=== PATIENT | male | born 1990 | race Caucasian/White ===

== ENCOUNTER 2017-01-30 09:43 | Emergency (ER) | payer MEDICAID, OTHER ==
[~2017-01-30] VITALS: Ht 167.6 cm; Wt 50.0 kg
[~2017-01-30 09:43] MED LIST: POLY3.5O OD; Z.0.NO CURRENT MEDS
[2017-01-30 10:00] VITALS: BP 117/70; PULSE 90; RESP 16; TEMP 97.8; O2SAT 95
--- NOTE | 2017-01-30 10:43 | PD ---
HPI Chief Complaint: Cold / Flu Symptoms Time Seen by Provider: 10:41 Travel History International Travel<30 days: No Contact w/Intl Traveler<30days: No Traveled to known affect area: No History of Present Illness HPI 26-year-old male presents to the emergency department complaining of cough and congestion for 2 weeks that has worsened since last Thursday. States that he went to a music festival recently in [place] where he likely picked up this infection. She also has some sinus tenderness and clear rhinorrhea. States he has moderate, sharp pain with coughing and deep breaths. He is coughing up clear and green sputum. Patient has also had subjective fever. He does have history of childhood asthma. Is not taking any medication to relieve symptoms. Patient states that he had a history of mycoplasma pneumonia at an unknown time. Patient denies shortness of breath, abdominal pain, urinary problems. Patient denies recent travel, surgeries, fractures, or other medical history. She works as a clerical adjudicator [employer] Past Medical History ADHD: Yes Asthma: Yes (HX OF; STATES "I GREW OUT OF IT. I HAVEN'T TAKEN ALBUTEROL IN 1 1/2 YRS") Autoimmune Disease: No Anxiety: No Depression: No Cancer: No Cardiovascular Problems: No Cystic Fibrosis: No Diabetes: No Diminished Hearing: No Gastrointestinal Disorders: Yes (HAD FECAL IMPACTION OF SUNFLOWER SEEDS) Genitourinary: No Musculoskeletal: No Neurologic: No Psychiatric: No Reproductive: No Respiratory: Yes (childhood asthma) Integumentary: Yes (SUPERFICIAL LACERATIONS ON RIGHT FOREARM--HEALING (SELF- INFLICTED W/GLASS)) Migraines: No Seizures: No Sleep Apnea: No Thyroid Disease: No Ulcer: No Past Surgical History Appendectomy: No Cholecystectomy: No Pacemaker: No Social History Alcohol Use: No Tobacco Use: Yes (1/2 PPD) Substance Use: No Allergies-Medications (Allergen,Severity, Reaction): Coded Allergies: azithromycin (Unverified Allergy, Severe, VOMITS, 01/30/17) Reported Meds & Prescriptions Reported Meds & Active Scripts Active Ventolin Hfa 18 GM Inh (Albuterol Sulfate) 90 Mcg/Act Aer 2 Puff INH Q4-6H PRN Doxycycline Hyclate 100 Mg Cap 100 Mg PO BID Review of Systems Except as stated in HPI: all other systems reviewed are Neg Physical Exam Narrative GENERAL: Well developed well nourished distress SKIN: Focused skin assessment warm/dry. HEAD: Atraumatic. Normocephalic. EYES: Pupils equal and round. No scleral icterus. No injection or drainage. ENT: No nasal bleeding or discharge. Mucous membranes pink and moist. Pharynx mildly irritated appearing NECK: Trachea midline. No JVD. No lymphadenopathy CARDIOVASCULAR: Regular rate and rhythm. No murmur appreciated. RESPIRATORY: No accessory muscle use. Breath sounds equal bilaterally- bilateral rhonchi GASTROINTESTINAL: Abdomen soft, non-tender, nondistended. Hepatic and splenic margins not palpable. No CVA tenderness MUSCULOSKELETAL: No obvious deformities. No clubbing. No cyanosis. No edema. NEUROLOGICAL: Awake and alert. No obvious cranial nerve deficits. Motor grossly within normal limits. Normal speech. PSYCHIATRIC: Appropriate mood and affect; insight and judgment normal. Data Data Last Documented VS Vital Signs Date Time Temp Pulse Resp B/P (MAP) Pulse Ox O2 Delivery O2 Flow Rate FiO2 01/30/17 10:00 97.8 90 16 117/70 (86) 95 Orders Orders Chest, Pa & Lat (01/30/17 ) Albuterol Neb (Albuterol Neb) (01/30/17 11:00) Ed Discharge Order (01/30/17 11:57) MDM Medical Decision Making Medical Screen Exam Complete: Yes Emergency Medical Condition: Yes Differential Diagnosis Viral syndrome versus upper respiratory infection versus bronchitis versus pneumonia Narrative Course 26-year-old male presents to the emergency department complaining of cough and congestion for 2 weeks that has worsened since last Thursday. States that he went to a music festival recently in [place] where he likely picked up this infection. She also has some sinus tenderness and clear rhinorrhea. States he has moderate chest pain with coughing and deep breaths. He is coughing up clear and green sputum. Patient has also had subjective fever. He does have history of childhood asthma. Is not taking any medication to relieve symptoms. Patient denies shortness of breath, heart palpitations, abdominal pain, urinary problems. Patient denies recent travel, surgeries, fractures, or any other medical history. Vitals stable. Physical exam demonstrates nontoxic-appearing male in no apparent distress. Rhonchi in bilateral lower lung roberson. Pharynx mildly irritated. Homans sign negative bilaterally Nebulizer administered in the ED improvement of symptoms. Chest [id number]: Abnormal air space consolidation at both lung bases. Given the distribution, aspiration should be a consideration. Other infectious or inflammatory processes could give this appearance as well. Based on the H&P patient may have mycoplasma pneumonia. Allergy to azithromycin , we'll treat with doxycycline. Patient to wear a mask at work for 1-2 weeks. Antibiotics as prescribed. Inhaler as needed. Advised patient to return for worsening symptoms. Diagnosis Primary Impression: Pneumonia Qualified Codes: J18.9 - Pneumonia, unspecified organism Referrals: Primary Care Physician Additional Instructions: Take medications as prescribed Return to the emergency department if her symptoms persist or worsen Return to primary care physician within 2 days. Scripts Albuterol 18 GM Inh (Ventolin Hfa 18 GM Inh) 90 Mcg/Act Aer 2 PUFF INH Q4-6H Y for SHORTNESS OF BREATH, #1 INHALER 0 Refills Prov: Joaquin Villanueva MD 01/30/17 Doxycycline Hyclate (Doxycycline Hyclate) 100 Mg Cap 100 MG PO BID for Infection, #20 CAP 0 Refills Prov: Joaquin Villanueva MD 01/30/17 Disposition: 01 DISCHARGE HOME Condition: Stable Amanda Vargas Jan 30, 2017 10:42
[2017-01-30] MEDS ORDERED: RESP: ALBUTEROL 2.5 MG/3 ML NEB (SCH) NEB ONE (11:00)
--- NOTE | 2017-01-30 11:37 | RADRPT ---
EXAM DATE/TIME: 01/30/2017 11:10 [facility] COMPARISON: No previous studies available for comparison. INDICATIONS : Cough MEDICAL HISTORY : Asthma, Bronchitis, Smoker SURGICAL HISTORY : None. ENCOUNTER: Initial ACUITY: 2 weeks PAIN SCORE: 7/10 LOCATION: Bilateral Rib pain FINDINGS: Frontal and lateral views of the chest demonstrate normal-sized cardiac silhouette. There is abnormal patchy airspace consolidation at both lung bases. No pleural effusion or pneumothorax is identified. The bones and soft tissues demonstrate no acute finding. CONCLUSION: Abnormal air space consolidation at both lung bases. Given the distribution, aspiration should be a c onsideration. Other infectious or inflammatory processes could give this appearance as well. Derek Woods MD on January 30, 2017 at 11:34 Board Certified Radiologist. This report was verified electronically.
[2017-01-30] MEDS ORDERED: DOXY100C PO (11:55)
[2017-01-30] MEDS ORDERED: VENTAER INH (11:56)
== END 2017-01-30 12:10 | disposition home or self-care (01) ==
LOC: PHEFT 09:43
DX: J18.9 Pneumonia, unspecified organism (principal); R51 Headache; J34.89 Other specified disorders of nose and nasal sinuses; F17.200 Nicotine dependence, unspecified, uncomplicated; Z86.59 Personal history of other mental and behavioral disorders; Z87.09 Personal history of other diseases of the respiratory system; Z87.19 Personal history of other diseases of the digestive system
CPT/HCPCS: 71020; 94664; 99284; J7613